=== PATIENT | male | born 1940 | race Caucasian/White ===

== ENCOUNTER 2017-09-22 09:42 | Outpatient (CLI) | payer MEDICARE ==
[~2017-09-22 09:42] MED LIST: ASPI-1265 PO; CYCL10TA26 PO; METH-360 PO; QUIN40TA PO; iohexol 350MG/ML 100ml bottle IV ONE
== END 2017-09-22 23:59 | disposition home or self-care (01) ==
LOC: 64 CT 09:42
PROVIDERS: ATTEND Surgery
DX: I65.22 Occlusion and stenosis of left carotid artery (principal); I65.01 Occlusion and stenosis of right vertebral artery; I67.2 Cerebral atherosclerosis; I11.0 Hypertensive heart disease with heart failure; I50.9 Heart failure, unspecified; Z87.891 Personal history of nicotine dependence
CPT/HCPCS: 70498; J7030; Q9967

== ENCOUNTER 2019-04-16 10:34 | Outpatient (CLI) | payer MEDICARE ==
[~2019-04-16 10:34] MED LIST changes: -iohexol 350MG/ML 100ml bottle IV ONE
[2019-04-16 11:29] LABS: BLOOD UREA NITROGEN 19 MG/DL (7-18); CREATININE 1.03 MG/DL (0.60-1.10); eGFR 70 ML/MIN
== END 2019-04-16 23:59 | disposition home or self-care (01) ==
LOC: VAS 10:34
PROVIDERS: ATTEND Surgery
DX: I70.208 Unspecified atherosclerosis of native arteries of extremities, other extremity (principal)
CPT/HCPCS: 36415; 70498; 71275; 73206; 76937; 82565; 84520; 93931